=== PATIENT | male | born 1970 | race Caucasian/White ===

== ENCOUNTER 2017-05-31 01:51 | Emergency (ER) | payer OTHER ==
[~2017-05-31] VITALS: Ht 187.9 cm; Wt 99.3 kg
[~2017-05-31 01:51] MED LIST: DAYPRO600 M1 PO; IBU800 M1 PO; KEFLEX500 MG PO; NKHM; PERCOCET 325 MG1 TA6 PO; PRILOSEC40 MG PO; ROBAXIN750 MG PO; TRAMADOL HCL50 MG PO; VICODIN 5/500 505 MG PO
[2017-05-31 02:18] LABS: BILIRUBIN NEGATIVE (NEGATIVE); BLOOD TRACE-INTACT (NEGATIVE); CLARITY SL CLOUDY (CLEAR); COLOR YELLOW (YELLOW); GLUCOSE NEGATIVE (NEGATIVE); KETONE NEGATIVE (NEGATIVE); LEUKO ESTERASE NEGATIVE (NEGATIVE); NITRITE NEGATIVE (NEGATIVE); SPECIFIC GRAVITY >= 1.030 (1.005-1.030); UROBILINOGEN 0.2 E.U./dl (0.2-1.0)
[2017-05-31 02:27] LABS: BACTERIA TRACE
[2017-05-31 02:38] LABS: BASO # 0.2 10*3/uL (0.0-0.1); BASO % 1.3 % (0.0-1.0); EOS # 0.4 10*3/uL (0.0-0.4); EOS % 3.8 % (1.0-4.0); HEMATOCRIT 40.1 % (42.0-52.0); HEMOGLOBIN 12.7 g/dl (14.0-18.0); LYMPH # 2.6 10*3/uL (1.3-4.4); MEAN CELL VOLUME 65.6 fl (80.0-94.0); MEAN CORPUSCULAR HGB 20.8 pg (27.0-31.0); MEAN CORPUSCULAR HGB CONC 31.7 g/dl (33.0-37.0); MEAN PLATELET VOLUME 11.4 fl (9.6-12.3); MONO # 1.1 10*3/uL (0.1-1.0); MONO % 9.7 % (3.0-9.0); NEUT # 7.1 10*3/uL (2.3-7.9); NEUT % 61.7 % (47.0-73.0); PLATELET COUNT AUTOMATED 220 10*3/uL (130-400); RED BLOOD COUNT 6.11 10*6/uL (4.50-5.90); RED CELL DISTRI WIDTH 17.7 % (0-14.5); WHITE BLOOD COUNT 11.5 10*3/uL (4.8-10.8)
[2017-05-31 02:52] LABS: ALBUMIN 3.4 gm/dl (3.1-4.5); ALKALINE PHOSPHATASE 79 U/L (45-117); BUN 11 mg/dl (7-24); CHLORIDE 108 mmol/L (98-107); CREATININE 1.03 mg/dL (0.70-1.30); LIPASE 112 U/L (73-393); POTASSIUM 3.9 mmol/L (3.5-5.1); SGOT/AST 18 IU/L (3-35); SGPT/ALT 22 U/L (12-78); SODIUM 141 mmol/L (136-145); TOTAL PROTEIN 6.6 gm/dL (6.4-8.2)
[2017-05-31] MEDS ORDERED: Zofran4 MG PO (02:59)
== END 2017-05-31 04:08 | disposition home or self-care (01) ==
LOC: ED 01:51
PROVIDERS: Student in an Organized Health Care Education/Training Program
DX: R10.31 Right lower quadrant pain (principal); G89.29 Other chronic pain; M54.5 Low back pain; F17.200 Nicotine dependence, unspecified, uncomplicated; Z79.899 Other long term (current) drug therapy

== ENCOUNTER → 2017-06-05 | Outpatient (CLI) | payer OTHER ==
[~2017-06-05] MED LIST changes: +Zofran4 MG PO
== END | disposition home or self-care (01) ==
LOC: RAD 17:20
DX: S39.012A Strain of muscle, fascia and tendon of lower back, initial encounter (principal); M41.85 Other forms of scoliosis, thoracolumbar region; M48.07 Spinal stenosis, lumbosacral region; X58.XXXA Exposure to other specified factors, initial encounter; Y93.89 Activity, other specified; Y92.89 Other specified places as the place of occurrence of the external cause; Y99.8 Other external cause status

== ENCOUNTER 2018-07-17 01:25 | Emergency (ER) | payer OTHER ==
[~2018-07-17] VITALS: Ht 187.9 cm; Wt 93.9 kg
[2018-07-17] MEDS ORDERED: SUMATRIPTA6 MG/0.53 SQ (01:28)
== END 2018-07-17 02:13 | disposition home or self-care (01) ==
LOC: ED 01:25
DX: S05.02XA Injury of conjunctiva and corneal abrasion without foreign body, left eye, initial encounter (principal); H16.002 Unspecified corneal ulcer, left eye; Z79.899 Other long term (current) drug therapy; X58.XXXA Exposure to other specified factors, initial encounter; Y93.89 Activity, other specified; Y92.89 Other specified places as the place of occurrence of the external cause; Y99.8 Other external cause status

== ENCOUNTER 2018-08-05 00:44 | Emergency (ER) | payer OTHER ==
[~2018-08-05] VITALS: Ht 187.9 cm; Wt 96.6 kg
[~2018-08-05 00:44] MED LIST changes: +SUMATRIPTA6 MG/0.53 SQ
[2018-08-05] MEDS ORDERED: SILVADENE,SSD C50 GM PO (03:22)
== END 2018-08-05 04:04 | disposition left against medical advice (07) ==
LOC: ED 00:44
DX: R59.0 Localized enlarged lymph nodes (principal); J02.9 Acute pharyngitis, unspecified; Z79.899 Other long term (current) drug therapy

== ENCOUNTER 2019-03-11 14:32 | Emergency (ER) | payer OTHER ==
[~2019-03-11] VITALS: Ht 187.9 cm; Wt 91.6 kg
--- NOTE | ~2019-03-11 | EKG ---
[place], [place] ELECTROCARDIOGRAM REPORT NAME: FUNMI RAMSAY JR UNIT #: [id number] ROOM: DOCTOR: ALYSIA DRAFT REPORT BIRTHDATE: [birth year] [facility] Test Date: 2019-03-11 Test Time: 15:08:38 Pat Name: FUNMI RAMSAY Department: ER Room: Gender: M Chairman Ceo: : 1970 Requested By: JACQUIE MCDANIEL Order Number: [id number] Reading MD: Ysabel Mejia MD Measurements Intervals [place] Rate: 76 P: 63 MA: 163 QRS: 57 QRSD: 98 T: 58 QT: 356 QTc: 401 Interpretive Statements Sinus rhythm ST elev, probable normal early repol pattern No previous ECG available for comparison Electronically Signed On 03-17-2019 6:56:20 PDT by Ysabel Mejia MD CM:EKGRPT:ELECTROCARDIOGRAM REPORT [id number] JACQUIE HENDRIX DRAFT REPORT JACQUIE MCDANIEL DO
[~2019-03-11 14:32] MED LIST changes: +SILVADENE,SSD C50 GM PO
[2019-03-11 15:15] LABS: HEMOGLOBIN 13.4 g/dl (14.0-18.0); MEAN CELL VOLUME 66.4 fl (80.0-94.0); MEAN CORPUSCULAR HGB 20.7 pg (27.0-31.0); MEAN CORPUSCULAR HGB CONC 31.2 g/dl (33.0-37.0); MEAN PLATELET VOLUME 10.9 fl (9.6-12.3); PLATELET COUNT AUTOMATED 226 10*3/uL (130-400); RED BLOOD COUNT 6.48 10*6/uL (4.50-5.90); RED CELL DISTRI WIDTH 17.9 % (0-14.5); WHITE BLOOD COUNT 10.4 10*3/uL (4.8-10.8)
[2019-03-11 15:24] LABS: ACT PARTIAL THROMBO TIME 25.2 SECONDS (20.0-32.1); INTERNATIONAL NORM RATIO 0.9 (2.0-3.5)
[2019-03-11 15:29] LABS: ALBUMIN 3.8 gm/dl (3.1-4.5); ALKALINE PHOSPHATASE 70 U/L (45-117); BUN 18 mg/dl (7-24); CHLORIDE 107 mmol/L (98-107); CREATININE 1.34 mg/dL (0.70-1.30); LIPASE 104 U/L (73-393); POTASSIUM 4.1 mmol/L (3.5-5.1); SGOT/AST 16 IU/L (3-35); SGPT/ALT 22 U/L (12-78); SODIUM 140 mmol/L (136-145); TOTAL PROTEIN 7.1 gm/dL (6.4-8.2)
[2019-03-11 15:32] LABS: TROPONIN I < 0.015 ng/ml (<0.045)
[2019-03-11 15:39] LABS: BASOPHILS 2 % (0-1); OVALOCYTES FEW; PLATELET SUFFICIENCY NORMAL (NORMAL); TARGET CELLS FEW; TOTAL CELLS COUNTED 100 #CELLS
== END 2019-03-11 16:27 | disposition home or self-care (01) ==
LOC: ED 14:32
PROVIDERS: Emergency Medicine
DX: E86.0 Dehydration (principal); R42 Dizziness and giddiness; H53.8 Other visual disturbances; R03.0 Elevated blood-pressure reading, without diagnosis of hypertension; G89.29 Other chronic pain; F17.200 Nicotine dependence, unspecified, uncomplicated; Z79.899 Other long term (current) drug therapy

== ENCOUNTER → 2020-06-29 | Outpatient (CLI) | payer OTHER | END | disposition home or self-care (01) | LOC: RAD 10:43 | PROVIDERS: ATTEND Family Medicine | DX: M54.2 Cervicalgia (principal); M79.603 Pain in arm, unspecified ==

== ENCOUNTER → 2020-10-05 | Outpatient (CLI) | payer OTHER | END | disposition home or self-care (01) | LOC: COVID19 14:52 | PROVIDERS: ATTEND Internal Medicine | DX: Z20.822 Contact with and (suspected) exposure to COVID-19 (principal); J01.00 Acute maxillary sinusitis, unspecified ==

== ENCOUNTER → 2020-10-10 | Outpatient (CLI) | payer OTHER | END | disposition home or self-care (01) | LOC: COVID19 14:55 | PROVIDERS: ATTEND Internal Medicine | DX: Z20.822 Contact with and (suspected) exposure to COVID-19 (principal); R43.0 Anosmia ==

== ENCOUNTER 2020-11-01 11:37 | Emergency (ER) | payer OTHER ==
[~2020-11-01] VITALS: Ht 187.9 cm
== END 2020-11-01 14:52 | disposition home or self-care (01) ==
LOC: ED 11:37
DX: S01.112A Laceration without foreign body of left eyelid and periocular area, initial encounter (principal); K21.9 Gastro-esophageal reflux disease without esophagitis; G43.909 Migraine, unspecified, not intractable, without status migrainosus; Z79.899 Other long term (current) drug therapy; W00.9XXA Unspecified fall due to ice and snow, initial encounter; Y93.89 Activity, other specified; Y92.89 Other specified places as the place of occurrence of the external cause; Y99.8 Other external cause status

== ENCOUNTER → 2022-12-25 | Outpatient (CLI) | payer OTHER | END | disposition home or self-care (01) | LOC: CARD 00:47 | PROVIDERS: ATTEND Internal Medicine | DX: R07.2 Precordial pain (principal) ==

== ENCOUNTER 2023-03-05 04:00 | Emergency (ER) | payer OTHER ==
[~2023-03-05] VITALS: Ht 187.9 cm; Wt 92.1 kg
[2023-03-05 04:35] LABS: BASO # 0.2 10*3/uL (0.0-0.1); BASO % 1.6 % (0.0-1.0); EOS # 0.4 10*3/uL (0.0-0.4); LYMPH # 3.4 10*3/uL (1.3-4.4); LYMPH % 35.3 % (27.0-41.0); MEAN CORPUSCULAR HGB 21.3 pg (27.0-31.0); MEAN CORPUSCULAR HGB CONC 32.2 g/dl (33.0-37.0); MEAN PLATELET VOLUME 10.6 fl (9.6-12.3); MONO # 0.8 10*3/uL (0.1-1.0); NEUT # 4.8 10*3/uL (2.3-7.9); NEUT % 50.7 % (47.0-73.0); PLATELET COUNT AUTOMATED 250 10*3/uL (130-400); RED BLOOD COUNT 6.21 10*6/uL (4.50-5.90); RED CELL DISTRI WIDTH 18.1 % (0-14.5); WHITE BLOOD COUNT 9.5 10*3/uL (4.8-10.8)
[2023-03-05 04:56] LABS: ALKALINE PHOSPHATASE 57 U/L (46-116); BUN 9 mg/dl (9-23); CHLORIDE 110 mmol/L (98-107); POTASSIUM 3.8 mmol/L (3.4-5.1); TOTAL PROTEIN 6.5 gm/dL (6.0-8.0)
[2023-03-05 04:57] LABS: SGPT/ALT < 7 U/L (10-49)
== END 2023-03-05 06:52 | disposition home or self-care (01) ==
LOC: ED 04:00
PROVIDERS: Internal Medicine
DX: R07.89 Other chest pain (principal); D50.9 Iron deficiency anemia, unspecified; M79.642 Pain in left hand; R68.84 Jaw pain; M79.605 Pain in left leg; G43.909 Migraine, unspecified, not intractable, without status migrainosus; K21.9 Gastro-esophageal reflux disease without esophagitis; Z98.890 Other specified postprocedural states

== ENCOUNTER 2024-01-19 01:52 | Emergency (ER) | payer OTHER ==
[~2024-01-19] VITALS: Ht 182.8 cm; Wt 95.3 kg
[2024-01-19] MEDS ORDERED: PERCOCET 5-3251 EACH PO (01:57)
[2024-01-19] MEDS ORDERED: Ondansetron Hydrochloride 4 MG TAB SL ONE (02:05)
[2024-01-19 02:23] LABS: BASO # 0.1 10*3/uL (0.0-0.1); BASO % 1.3 % (0.0-1.0); EOS # 0.6 10*3/uL (0.0-0.4); EOS % 6.5 % (1.0-4.0); HEMATOCRIT 42.8 % (42.0-52.0); LYMPH # 3.4 10*3/uL (1.3-4.4); LYMPH % 34.9 % (27.0-41.0); MEAN CELL VOLUME 67.2 fl (80.0-94.0); MEAN CORPUSCULAR HGB 20.4 pg (27.0-31.0); MEAN CORPUSCULAR HGB CONC 30.4 g/dl (33.0-37.0); MEAN PLATELET VOLUME 10.6 fl (9.6-12.3); MONO # 0.7 10*3/uL (0.1-1.0); MONO % 7.5 % (3.0-9.0); NEUT # 4.8 10*3/uL (2.3-7.9); NEUT % 49.5 % (47.0-73.0); PLATELET COUNT AUTOMATED 244 10*3/uL (130-400); RED BLOOD COUNT 6.37 10*6/uL (4.50-5.90); RED CELL DISTRI WIDTH 17.8 % (0-14.5); WHITE BLOOD COUNT 9.6 10*3/uL (4.8-10.8)
[2024-01-19] MEDS ORDERED: Ondansetron Hydrochloride 4 MG/2 ML VIAL IV ONE (02:30)
[2024-01-19] MEDS ORDERED: HYDROmorphONE Hydrochloride 1 MG/ML SYR IV ONE ×3 (02:30→04:30)
[2024-01-19 02:45] LABS: ALKALINE PHOSPHATASE 76 U/L (46-116); BUN 10 mg/dl (9-23); CHLORIDE 110 mmol/L (98-107); LIPASE 42 U/L (12-53); POTASSIUM 3.9 mmol/L (3.4-5.1); SGPT/ALT < 7 U/L (5-49); TOTAL PROTEIN 6.6 gm/dL (6.0-8.0)
== END 2024-01-19 04:48 | disposition home or self-care (01) ==
LOC: ED 01:52
PROVIDERS: Internal Medicine
DX: K80.20 Calculus of gallbladder without cholecystitis without obstruction (principal); K82.8 Other specified diseases of gallbladder; D50.9 Iron deficiency anemia, unspecified; K21.9 Gastro-esophageal reflux disease without esophagitis

== ENCOUNTER 2024-01-23 10:16 | Emergency (ER) | payer OTHER ==
[~2024-01-23] VITALS: Ht 61 cm; Wt 95.7 kg
[~2024-01-23 10:16] MED LIST changes: +PERCOCET 5-3251 EACH PO
[2024-01-23] MEDS ORDERED: MORPHINE Sulfate 2 MG/ML SYR IV ONE (11:10)
[2024-01-23] MEDS ORDERED: Ondansetron Hydrochloride 4 MG/2 ML VIAL IV ONE (11:10)
[2024-01-23] MEDS ORDERED: Ketorolac Tromethamine 15 MG/ML VIAL IV ONE (11:10)
[2024-01-23] MEDS ORDERED: SODIUM CHLORIDE 0.9% 1,000 ML IV ONE (11:10)
[2024-01-23 11:24] LABS: BASO # 0.1 10*3/uL (0.0-0.1); BASO % 1.2 % (0.0-1.0); EOS # 0.5 10*3/uL (0.0-0.4); EOS % 4.5 % (1.0-4.0); HEMATOCRIT 41.2 % (42.0-52.0); LYMPH # 2.5 10*3/uL (1.3-4.4); LYMPH % 21.9 % (27.0-41.0); MEAN CELL VOLUME 65.7 fl (80.0-94.0); MEAN CORPUSCULAR HGB 20.7 pg (27.0-31.0); MEAN CORPUSCULAR HGB CONC 31.6 g/dl (33.0-37.0); MEAN PLATELET VOLUME 10.4 fl (9.6-12.3); MONO # 0.9 10*3/uL (0.1-1.0); NEUT # 7.2 10*3/uL (2.3-7.9); NEUT % 63.8 % (47.0-73.0); PLATELET COUNT AUTOMATED 245 10*3/uL (130-400); RED BLOOD COUNT 6.27 10*6/uL (4.50-5.90); RED CELL DISTRI WIDTH 17.8 % (0-14.5); WHITE BLOOD COUNT 11.3 10*3/uL (4.8-10.8)
[2024-01-23 11:44] LABS: ALKALINE PHOSPHATASE 80 U/L (46-116); BUN 11 mg/dl (9-23); CHLORIDE 107 mmol/L (98-107); LIPASE 45 U/L (12-53); POTASSIUM 4.2 mmol/L (3.4-5.1); SGPT/ALT 8 U/L (5-49); TOTAL PROTEIN 6.7 gm/dL (6.0-8.0)
[2024-01-23] MEDS ORDERED: HYDROCODONE-AC1 EAC1 PO (12:30)
[2024-01-23] MEDS ORDERED: CIPRO500 MG PO (12:30)
[2024-01-23] MEDS ORDERED: ONDANSETRON4 MG SL (12:30)
== END 2024-01-23 12:39 | disposition home or self-care (01) ==
LOC: ED 10:16
PROVIDERS: Emergency Medicine
DX: K80.20 Calculus of gallbladder without cholecystitis without obstruction (principal); R11.2 Nausea with vomiting, unspecified; K21.9 Gastro-esophageal reflux disease without esophagitis

== ENCOUNTER → 2024-02-26 | Day surgery (SDC) | payer OTHER ==
[2024-02-24 13:34] LABS: BASO # 0.1 10*3/uL (0.0-0.1); BASO % 1.7 % (0.0-1.0); BILIRUBIN Negative (Negative); BLOOD Negative (Negative); CLARITY Clear (Clear); COLOR Yellow (Yellow); EOS # 0.4 10*3/uL (0.0-0.4); GLUCOSE Negative (Negative); HEMATOCRIT 44.8 % (42.0-52.0); KETONE Negative (Negative); LEUKO ESTERASE Negative (Negative); LYMPH # 2.4 10*3/uL (1.3-4.4); LYMPH % 29.2 % (27.0-41.0); MEAN CELL VOLUME 65.7 fl (80.0-94.0); MEAN CORPUSCULAR HGB 20.4 pg (27.0-31.0); MEAN PLATELET VOLUME 10.1 fl (9.6-12.3); MONO # 0.5 10*3/uL (0.1-1.0); MONO % 6.5 % (3.0-9.0); NEUT # 4.7 10*3/uL (2.3-7.9); NEUT % 57.4 % (47.0-73.0); NITRITE Negative (Negative); PH 6.5 (4.5-8.0); PLATELET COUNT AUTOMATED 233 10*3/uL (130-400); RED BLOOD COUNT 6.82 10*6/uL (4.50-5.90); RED CELL DISTRI WIDTH 18.1 % (0-14.5); UROBILINOGEN 0.2 E.U./dl (0.0-1.0); WHITE BLOOD COUNT 8.2 10*3/uL (4.8-10.8)
[2024-02-24 13:45] LABS: ACT PARTIAL THROMBO TIME 27.5 SECONDS (20.0-32.1)
[2024-02-24 13:48] LABS: RBC 0-2 rbc/hpf (0-2); WBC 0-2 wbc/hpf (0-5)
[2024-02-24 14:12] LABS: ALKALINE PHOSPHATASE 68 U/L (46-116); BUN 9 mg/dl (9-23); CHLORIDE 107 mmol/L (98-107); LIPASE 29 U/L (12-53); POTASSIUM 4.5 mmol/L (3.4-5.1); TOTAL PROTEIN 6.8 gm/dL (6.0-8.0)
[2024-02-24 14:13] LABS: SGPT/ALT < 7 U/L (5-49)
[2024-02-26] VITALS (7 sets, daily range): BP systolic 112–168; BP diastolic 53–84
[~2024-02-26] VITALS: Ht 187.9 cm; Wt 90.7 kg
[~2024-02-26] MED LIST changes: +CIPRO500 MG PO; +Dexamethasone Sodium Phospha 20 MG/5 ML VIAL T ONE; +GLYCOPYRROLATE IN WATER/PF 0.4 MG/2 ML SYRINGE IV ONE; +HYDROCODONE-AC1 EAC1 PO; +HYDROmorphONE Hydrochloride 1 MG/ML SYR IV ONE; +HYDROmorphONE Hydrochloride 1 ML IV ONE; +IMITREX4 MG/0.5 M SQ; +Ketorolac Tromethamine 30 MG/ML VIAL IV ONE; +Lactated Ringer's Solution 1,000 ML IV ONE; +Lactated Ringer's Solution 1,000 ML IV SCH; +Lidocaine Hydrochloride 2% 10 ML AMP IV ONE; +Midazolam Hydrochloride 2 MG/2 ML VIAL IV ONE; +Neostigmine Methylsulfate 3 MG/3 ML SYRINGE IV ONE; +ONDANSETRON4 MG SL; +Ondansetron Hydrochloride 4 MG/2 ML VIAL IV ONE; +PROPOFOL 200 MG/20 ML VIAL IV ONE; +ROCURONIUM BROMIDE 50 MG/5 ML SYRINGE IV ONE; +SEVOFLURANE 250 ML BOT INH ONE; +ceFAZolin sodium/sodium chlor 20 ML IV ONE; +fentaNYL CITRATE 100 MCG/2 ML VIAL IV ONE
== END | disposition home or self-care (01) ==
LOC: SDC 02-19 13:15
PROVIDERS: ATTEND Surgery
DX: K80.10 Calculus of gallbladder with chronic cholecystitis without obstruction (principal); G43.909 Migraine, unspecified, not intractable, without status migrainosus; I25.10 Atherosclerotic heart disease of native coronary artery without angina pectoris; K21.9 Gastro-esophageal reflux disease without esophagitis; F17.210 Nicotine dependence, cigarettes, uncomplicated; Z79.899 Other long term (current) drug therapy; Z83.3 Family history of diabetes mellitus; Z82.49 Family history of ischemic heart disease and other diseases of the circulatory system

== ENCOUNTER → 2024-04-13 | Outpatient (CLI) | payer OTHER ==
[~2024-04-13] MED LIST changes: +BARIUM SULFATE 98% 340 GM BOT PO ONE; +BARIUM SULFATE TABLET 700 MG PO ONE; -Dexamethasone Sodium Phospha 20 MG/5 ML VIAL T ONE; -GLYCOPYRROLATE IN WATER/PF 0.4 MG/2 ML SYRINGE IV ONE; -HYDROmorphONE Hydrochloride 1 MG/ML SYR IV ONE; -HYDROmorphONE Hydrochloride 1 ML IV ONE; -Ketorolac Tromethamine 30 MG/ML VIAL IV ONE; -Lactated Ringer's Solution 1,000 ML IV ONE; -Lactated Ringer's Solution 1,000 ML IV SCH; -Lidocaine Hydrochloride 2% 10 ML AMP IV ONE; -Midazolam Hydrochloride 2 MG/2 ML VIAL IV ONE; -Neostigmine Methylsulfate 3 MG/3 ML SYRINGE IV ONE; -Ondansetron Hydrochloride 4 MG/2 ML VIAL IV ONE; -PROPOFOL 200 MG/20 ML VIAL IV ONE; -ROCURONIUM BROMIDE 50 MG/5 ML SYRINGE IV ONE; -SEVOFLURANE 250 ML BOT INH ONE; -ceFAZolin sodium/sodium chlor 20 ML IV ONE; -fentaNYL CITRATE 100 MCG/2 ML VIAL IV ONE
== END | disposition home or self-care (01) ==
LOC: RAD/SH 02:13
PROVIDERS: ATTEND Internal Medicine
DX: R13.10 Dysphagia, unspecified (principal)